=== PATIENT | female | born 2000 | race Caucasian/White ===

== ENCOUNTER 2021-10-24 21:25 | Inpatient (IN) | payer OTHER ==
[~2021-10-24] VITALS: Ht 175.3 cm; Wt 83.3 kg
[2021-10-25] MEDS ORDERED: loperamide 2mg capsule PO PRN (09:55)
[2021-10-25] MEDS ORDERED: acetaminophen 325mg tablet PO PRN ×2 (09:55)
[2021-10-25] MEDS ORDERED: mag hydrox/Alum hydrox/simeth 30ml oral suspension PO PRN (09:55)
[2021-10-25] MEDS ORDERED: magnesium hydroxide 30ml (MOM) UD suspension PO PRN (09:55)
[2021-10-25] MEDS ORDERED: NICOTINE POLACRILEX 2 MG LOZENGE BC PRN (09:55)
[2021-10-25 11:20] VITALS: BP 150/88
[2021-10-25] MEDS ORDERED: ARIP2TAB20 PO (11:57)
[2021-10-25] MEDS ORDERED: LAMO25TA23 PO (11:57)
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
--- NOTE | 2021-10-25 18:04 | NUR ---
Group Art Tx, Continued: Patient had just been admitted 30 minutes prior to her attending her first afternoon art therapy group. Patient was alert, cautions yet motivated to participate in group. Patient was able to complete and identify her two feeling opposites:Drowning & Sad v.s. Light and Happiness, which she dialogued about. She talked briefly about her difficulty in "opening up and sharing her feelings with people" She remained for the entire group having a pleasant and postive outlook on what she was feeling and needed to address. * Please refer to the group notes in [facility] for an overall report. Maggy Vázquez MA, HONEY GRADER AND BLENDER #[id number] [facility]-Art Therapist Addendum: 10/25/21 at 1807 by Maggy Vázquez SS Amended: Links added.
[2021-10-25 19:16] VITALS: BP 128/80
[2021-10-25] MEDS: lamoTRIgine 100mg tablet PO SCH (20:34)
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
[2021-10-26 08:14] VITALS: BP 115/73
[2021-10-26] MEDS ORDERED: FLU VACC QS2021-22(6MOS UP)/PF 60 MCG/0.5 ML SYRINGE IM ONE (09:00)
[2021-10-26 10:09] LABS: CHOL/HDL RATIO 3.1 (0.00-4.99); CHOLESTEROL 129 MG/DL (0-200); HDL CHOLESTEROL 41 MG/DL (35-60); LDL CHOLESTEROL 78 MG/DL (50-100); TRIGLYCERIDES 81 MG/DL (20-135)
[2021-10-26 11:03] LABS: HEMOGLOBIN A1C 5.2 % (4.5-6.2)
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
[2021-10-26 19:02] VITALS: BP 11/80
[2021-10-26] MEDS: prazosin 1mg capsule PO SCH (20:07)
[2021-10-26] MEDS: lamoTRIgine 100mg tablet PO SCH (20:07)
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
[2021-10-27 08:17] VITALS: BP 116/77
[2021-10-27] MEDS ORDERED: lithium carbonate 150mg capsule PO ONE (08:25)
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
[2021-10-27 20:00] VITALS: BP 116/74
[2021-10-27] MEDS: prazosin 1mg capsule PO SCH (20:36)
[2021-10-27] MEDS: lamoTRIgine 100mg tablet PO SCH (20:36)
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
[2021-10-28 07:00] VITALS: BP 135/72
[2021-10-28] MEDS: lithium carbonate 150mg capsule PO SCH (08:19)
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
[2021-10-28 19:39] VITALS: BP 134/72
[2021-10-28] MEDS: lamoTRIgine 100mg tablet PO SCH (20:23)
[2021-10-28] MEDS: prazosin 1mg capsule PO SCH (20:23)
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
[2021-10-29] MEDS: lithium carbonate 150mg capsule PO SCH (07:56)
[2021-10-29 08:10] VITALS: BP 110/72
--- NOTE | 2021-10-29 12:18 | NUR ---
Scheduled Pallavi's post hospital appointment with [facility]. Requested another therapist for her as she does not like her current therapist. Was informed Pallavi will have to request one at her follow up appointment. STEVEN Dallas
--- NOTE | 2021-10-29 12:44 | NUR ---
PROBABLE CAUSE HEARING Patients Name: Pallavi Segura Admission Date: 10/25/21 Date of 5150: 10/24/2021 Written by: [facility] Criteria: DTS Summary of Facts: Pallavi attempted to kill herself through carbon monoxide poisoning, inhaling vehicle fumes. Continues to endorse SI Date of 5250: 10/28/21 Written by: Dr. Benitez Criteria: DTS Summary of Facts: This patient was admitted for depression and SI with plan to mary her life with carbon monoxide poisoning. Some improvement has been made though given her risk factors of high-risk barrera, ptsd, micki, lack of family support here, in my opinion she is a high risk for self-harm. Diagnosis: MDD s psychotic fx Behavior during past 48 HRS: Per providers note yesterday patient reports that she is doing better today than yesterday she experienced some episodes of depression they were not as profound, she was able to attend groups, denies any current suicide ideations, she reports that she was able to take her lithium without any side effects, last night she did not experience any nightmares just like the night before, she denies any flashbacks nightmares, and intrusive thoughts. The provider thinks that this improvement is too quick after the severe suicide attempt and that she is likely minimizing her sx. FOOD: 45-100% SLEEPIN hrs ADLS: ind [facility]: lives with roommate MEDICATION DOSAGE FREQUENCY DURATION Lamictal 100 mg po q hs Prazosin 1 mg po q hs [place] 150 mg po daily
--- NOTE | 2021-10-29 13:32 | NUR ---
Pt. attended group today. We talked about how we all look at the world differently due to our core beliefs. These core beliefs then inform thoughts and behaviors. Each pt. identified one negative core belief and then wrote out three truths that contradict their negative beliefs to work on thinking differently. Pt. was alert and oriented X 4. Her thought content and thought process was WNL. She was able to identify that a negative core belief she struggles with is, "I will never find anyone (love interest) because I am broken". She shared that she tends to get into bad relationships because she realizes that she believes that she doesn't deserve to feel loved. Pt. engaged well in the process, she identified that she has a best friend who she knows loves her and she loves herself. From there she was able to say, there is evidence that says I am lovable. She chose this as her new core belief to work toward. Her demeanor was calm, compliant and pleasant to work with. She was conscientious of others in the group and socialized well. MITZI CalderonW
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
[2021-10-29 19:30] VITALS: BP 132/83
[2021-10-29] MEDS: prazosin 1mg capsule PO SCH (20:30)
[2021-10-29] MEDS: lamoTRIgine 100mg tablet PO SCH (20:30)
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
--- NOTE | 2021-10-30 07:43 | NUR ---
Initial: Pt admitted w/ major depressive disorder and SI per EMR. Pt currently on Regular diet w/ mostly 75-100% intake of meals meeting needs. M 10/25 w/ PRN bowel care available. No nutrition intervention implemented at this time, will continue to monitor. Recs: 1. Continue Regular diet as tolerated 2. Bowel care per rx 3. Weekly wts Addendum: 10/30/21 at [address] Amended: Links added.
[2021-10-30 08:05] VITALS: BP 106/68
[2021-10-30] MEDS: lithium carbonate 150mg capsule PO SCH (08:10)
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
[2021-10-30] MEDS: lamoTRIgine 100mg tablet PO SCH (20:12)
[2021-10-30] MEDS: prazosin 1mg capsule PO SCH (20:12)
[2021-10-30] MEDS: lamoTRIgine 25mg tablet PO SCH (20:13)
[2021-10-30 20:57] VITALS: BP 112/73
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
[2021-10-31 07:51] VITALS: BP 113/64
[2021-10-31] MEDS: lithium carbonate 150mg capsule PO SCH ×2 (08:22→12:49)
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
[2021-10-31 20:00] VITALS: BP 117/64
[2021-10-31] MEDS: lamoTRIgine 25mg tablet PO SCH (20:31)
[2021-10-31] MEDS: prazosin 1mg capsule PO SCH (20:31)
[2021-10-31] MEDS: lamoTRIgine 100mg tablet PO SCH (20:31)
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
[2021-11-01 07:49] VITALS: BP 112/63
[2021-11-01] MEDS: lithium carbonate 150mg capsule PO SCH ×2 (07:59→12:35)
[2021-11-01] MEDS ORDERED: LAMO25TA5 PO (11:58)
[2021-11-01] MEDS ORDERED: PRAZ1CAP5 PO (11:58)
[2021-11-01] MEDS ORDERED: LAMO100T2 PO (11:58)
[2021-11-01] MEDS ORDERED: LITH150C8 PO (11:58)
--- NOTE | 2021-11-01 12:50 | NUR ---
DISCHARGE NOTE: Pt. discharged to home, driven via taxi-cab. Pt. discharged with all belongings and valuables. RN went over discharge paperwork, f/u plan, crisis phone numbers, and medications. Pt. verbalized understanding of discharge plan, crisis phone numbers, medications and signed all paperwork. Pt. showed improvement during hospitalization. Pt. is A&Ox4 and denies all SI/HI, A/V hallucinations.
== END 2021-11-01 12:50 | disposition home or self-care (01) | DRG 885 ==
LOC: ADULT MH 10-25 11:31
PROVIDERS: ADMIT Psychiatry & Neurology Neurology with Special Qualifications in Child Neurology; ATTEND Psychiatry & Neurology Neurology with Special Qualifications in Child Neurology
DX: F33.2 Major depressive disorder, recurrent severe without psychotic features (principal); R45.851 Suicidal ideations; J45.909 Unspecified asthma, uncomplicated; F43.12 Post-traumatic stress disorder, chronic; F41.9 Anxiety disorder, unspecified; F90.9 Attention-deficit hyperactivity disorder, unspecified type; K30 Functional dyspepsia; R06.4 Hyperventilation; R11.0 Nausea; Z79.899 Other long term (current) drug therapy; Z23 Encounter for immunization; Z88.8 Allergy status to other drugs, medicaments and biological substances; Z88.2 Allergy status to sulfonamides
CPT/HCPCS: 36415; 80061; 83036; 87081